=== PATIENT | female | born 1930 | race Caucasian/White ===

== ENCOUNTER 2016-10-10 07:20 | Day surgery (SDC) | payer OTHER ==
[2016-10-10] MEDS ORDERED: MIDAZOLAM 2 MG/2 ML VIAL ONE (07:23)
[2016-10-10] MEDS ORDERED: fentaNYL 100 MCG/2 ML INJ ONE (07:23)
[2016-10-10] MEDS ORDERED: NS 1,000 ML IV SCH (07:45)
[2016-10-10] MEDS ORDERED: CLINDAMYCIN 900 MG/DEXTROSE 50 ML IV ONE (08:00)
[2016-10-10 08:11] LABS: % IMMATURE GRANULYOCYTES 0.2 % (0.0-1.1); ABSOLUTE IMMATURE GRANULOCYTES 0.02 10^3/uL (0.00-0.10); ADD DIFF? NO; ADD MORPH? NO; ADD SCAN? NO; ATYPICAL LYMPHOCYTE FLAG 30 (0-99); FRAGMENT RBC FLAG 0 (0-99); HEMATOCRIT 34.2 % (38.0-47.0); HEMOGLOBIN 10.8 g/dL (12.6-16.3); LEFT SHIFT FLG 0 (0-99); LIPEMIA HEMOLYSIS FLAG 80 (0-99); MEAN CELL HEMOGLOBIN 26.7 pg (27.9-34.1); MEAN CELL HEMOGLOBIN CONCENTR. 31.6 g/dL (32.4-36.7); MEAN CELL VOLUME 84.7 fL (81.5-99.8); MEAN PLATELET VOLUME 9.8 fL (8.7-11.7); PLATELET CLUMPS FLAG 0 (0-99); PLATELET COUNT 355 10^3/uL (150-400); RED BLOOD CELL COUNT 4.04 10^6/uL (4.18-5.33); RED CELL DISTRIBUTION WIDTH 16.3 % (11.5-15.2)
[2016-10-10 08:29] LABS: INR 1.08 (0.83-1.16); PROTIME(PATIENT) 13.9 SEC (12.0-15.0)
[2016-10-10] MEDS ORDERED: BUPIVACAINE 0.5% 30 ML SDV ONE (09:57)
[2016-10-10] MEDS ORDERED: LIDOCAINE 1% 30 ML SDV ONE (09:57)
--- NOTE | 2016-10-10 11:17 | CPEKG ---
Heart Rate: 56 RR Interval: 1071 P-R Interval: 168 QRSD Interval: 90 QT Interval: 408 QTC Interval: 394 P Ringsted: 55 QRS Ringsted: 17 T Wave Ringsted: 20 EKG Severity - NORMAL ECG - EKG Impression: SINUS RHYTHM Electronically Signed By: Lenny Lam 10-Oct-2016 13:18:48
[2016-10-10] MEDS ORDERED: ONDANSETRON 4 MG/2 ML VIAL IVP PRN (11:28)
[2016-10-10] MEDS ORDERED: ONDANSETRON DISINTEGRATING 4 MG TAB PO PRN (11:28)
[2016-10-10] MEDS ORDERED: oxyCODONE IR 5 MG TAB PO PRN (11:30)
[2016-10-10] MEDS ORDERED: METHOCARBAMOL 500 MG TAB PO SCH (12:00)
--- NOTE | 2016-10-10 14:04 | IR ---
Vertebral Augmentation/Kyphoplasty of T9 History: 10 out of 10 pain in thoracic spine and bilateral ribs. She underwent previous kyphoplasty o f T10 on September 10 followed by another insufficiency fracture requiring kyphoplasty of T11 on [facility] er 20. Current symptoms became severe on September 29. MRI on October 01 demonstrated new edema withi n vertebral body of T9. Consent: Risks and benefits of the procedure were discussed in detail, and informed consent was obta ined. Medications: Intravenous conscious sedation and analgesia were given under my supervision. Vital sign s, pulse oximetry, and electrocardiogram were monitored. The patient received 1.5 milligrams of Verse d and 100 micrograms of fentanyl intravenously. She was given prophylactic anabiotic: Clindamycin, 90 0 mg IV. Start time: 0945. End time: 1030. Fluoroscopy time in minutes: 1.6 AP, 1.2 lateral. Estimated exposure in mGy: 131.6. Technique: With the patient prone, the back was prepped and draped in sterile fashion. All elements o f maximal sterile barrier technique were used, including cap, mask, sterile gown, sterile gloves, lar ge sterile sheet, hand hygiene, and 2% chlorhexidine for cutaneous antisepsis. 1% Xylocaine was used for local anesthetic in the soft tissues. 0.5% bupivacaine was used for periosteal anesthetic. After skin bhupinder with a scalpel, a 10-gauge bone needle was inserted into the right pedicle of T9 and advan ruben anteriorly into the vertebral body using biplane fluoroscopic guidance. Straight osteotome and re ticulating osteotome were used for cavity creation, documented by biplane spot images. Sterile methyl methacrylate with barium powder for opacification was prepared in usual fashion. We waited 10 minute s for the cement to firm up. Using the [employer] hydraulic powered dispenser and radiofrequency activatio n of cement, a coaxial large bore needle was used to inject cement under careful biplane fluoroscopic control. 3.5 mL of cement were injected. Final biplane spot images were obtained. Stylet was reinser ed into the 10-gauge bone needle, and needle was removed. The patient tolerated the procedure well a nd was returned to postprocedure recovery area in stable condition. Findings: Opaque cement is well distributed within the vertebral body of T9. Some cement extends into an emissary vein on the right side, of no significance. Opaque cement is well distributed within pre viously treated levels of T10 and T11. As before, the vertebral body of T8 has an old compression fra cture, with moderate anterior wedge compression deformity. Impression: New kyphoplasty of T9, tolerated well. Plans 1. Discharge to home when patient is ready today. 2. Prescriptions given for methocarbamol and oxycodone. 3. Imaging follow up, if necessary. - - - - - - - - - - - - - - - - - - - - - - - - - - - - - - - - - - - - - - - - - - - - (PQRS Measures: Current medications were listed in the medical record, including all known prescript ions, viad-meb-fyzmbbf medications, herbal medications, and nutritional supplements. Tobacco Use: Non e. Prophylactic Antibiotic: Clindamycin 900 mg IV were given within 4 hours prior to incision and t hen discontinued. VTE Prophylaxis: Unnecessary.)
== END 2016-10-10 13:35 | disposition home or self-care (01) ==
LOC: FIMAGING 07:20
PROVIDERS: ATTEND Radiology Diagnostic Radiology
PROC: 0PU43JZ Supplement Thoracic Vertebra with Synthetic Substitute, Percutaneous Approach (ICD-10-PCS; principal; 2016-10-10 10:38)
PROC: 0PS43ZZ Reposition Thoracic Vertebra, Percutaneous Approach (ICD-10-PCS; principal; 2016-10-10 10:38)
DX: M84.48XA Pathological fracture, other site, initial encounter for fracture (principal); J84.10 Pulmonary fibrosis, unspecified; K90.0 Celiac disease
CPT/HCPCS: 86334-90; J2250; J3010

== ENCOUNTER → 2017-01-16 | Outpatient (CLI) | payer OTHER | LOC: BHFA 14:30 | PROVIDERS: ATTEND Internal Medicine Cardiovascular Disease | DX: R94.31 Abnormal electrocardiogram [ECG] [EKG] (principal) ==

== ENCOUNTER → 2017-01-27 | Outpatient (CLI) | payer OTHER | LOC: BHFA 13:15 | PROVIDERS: ATTEND Internal Medicine Interventional Cardiology | DX: I48.91 Unspecified atrial fibrillation (principal) ==

== ENCOUNTER → 2017-01-31 | Outpatient (CLI) | payer OTHER | LOC: BHFA 10:00 | PROVIDERS: ATTEND Internal Medicine Cardiovascular Disease | DX: I48.0 Paroxysmal atrial fibrillation (principal) ==

== ENCOUNTER → 2017-03-04 | Outpatient (CLI) | payer OTHER | LOC: BHFA 08:30 | PROVIDERS: ATTEND Internal Medicine Cardiovascular Disease | DX: I48.91 Unspecified atrial fibrillation (principal); R00.2 Palpitations | CPT/HCPCS: 78452; 93017; 93306; A9500; J2785 ==

== ENCOUNTER → 2017-07-17 | Outpatient (CLI) | payer OTHER | LOC: CIMAGING 12:36 | PROVIDERS: ATTEND Family Medicine | DX: J84.10 Pulmonary fibrosis, unspecified (principal) | CPT/HCPCS: 71020-PO ==

== ENCOUNTER → 2017-08-04 | Outpatient (CLI) | payer OTHER | LOC: CIMAGING 14:07 | PROVIDERS: ATTEND Family Medicine | DX: J84.112 Idiopathic pulmonary fibrosis (principal); S22.050A Wedge compression fracture of T5-T6 vertebra, initial encounter for closed fracture; J47.9 Bronchiectasis, uncomplicated | CPT/HCPCS: 71250-PO ==

== ENCOUNTER → 2017-08-27 | Outpatient (CLI) | payer OTHER | LOC: BRMIMAGING 11:03 | PROVIDERS: ATTEND Family Medicine | DX: Z12.31 Encounter for screening mammogram for malignant neoplasm of breast (principal) | CPT/HCPCS: G0202 ==

== ENCOUNTER → 2017-09-24 | Outpatient (CLI) | payer OTHER | LOC: CIMAGING 14:35 | PROVIDERS: ATTEND Family Medicine | DX: M41.86 Other forms of scoliosis, lumbar region (principal); S32.009A Unspecified fracture of unspecified lumbar vertebra, initial encounter for closed fracture; M54.6 Pain in thoracic spine; M81.0 Age-related osteoporosis without current pathological fracture | CPT/HCPCS: 72072-PO; 72100-PO ==

== ENCOUNTER → 2018-01-20 | Outpatient (CLI) | payer OTHER, MEDICARE | LOC: CIMAGING 15:15 | PROVIDERS: ATTEND Family Medicine | DX: M25.552 Pain in left hip (principal); M81.0 Age-related osteoporosis without current pathological fracture; E03.9 Hypothyroidism, unspecified; K90.0 Celiac disease | CPT/HCPCS: 36415-PO; 73502-PO; 85652-PO ==

== ENCOUNTER 2018-05-08 12:11 | Day surgery (SDC) | payer OTHER, MEDICARE ==
[2018-05-08] MEDS ORDERED: NS 500 ML IV ONE (12:18)
[2018-05-08] MEDS ORDERED: fentaNYL 100 MCG/2 ML INJ IVP ONE (12:18)
[2018-05-08] MEDS ORDERED: MIDAZOLAM 2 MG/2 ML VIAL IVP ONE (12:18)
[2018-05-08] MEDS ORDERED: BENZOCAINE UNIT DOSE SPRAY HURRICAINE MM ONE (12:18)
[2018-05-08] MEDS ORDERED: PROPOFOL 200 MG/20 ML VIAL ONE (13:34)
[2018-05-08] MEDS ORDERED: LIDOCAINE 2% 100 MG/5 ML SYR ONE (13:34)
[2018-05-08] MEDS ORDERED: SUCCINYLCHOLINE CHLORIDE 200 MG/10 ML SYR IVP ONE (13:34)
--- NOTE | 2018-05-08 13:43 | PDHPUP ---
History & Physical Update H&P update statement: This history and physical update is based on an assessment of the patient which was completed after admission or registration (within 24 hours), but prior to the surgery/procedure. H&P update: H&P reviewed & patient examined, no change in patient's condition since H&P completed (Reviewed Dr. Mendez's recent office note. )
--- NOTE | 2018-05-08 14:34 | PDANEPAE ---
ANE History of Present Illness parox a-fib here for CORY and watchman eval ROSE Past Medical History - Cardiovascular History Hx Hypertension: Yes Hx Arrhythmias: No Hx Chest Pain: No Hx Coronary Artery / Peripheral Vascular Disease: No Hx CHF / Valvular Disease: No Hx Palpitations: No - Pulmonary History Hx COPD: No Hx Asthma/Reactive Airway Disease: No Hx Recent Upper Respiratory Infection: No Hx Oxygen in Use at Home: No Hx Sleep Apnea: No - Neurologic History Hx Cerebrovascular Accident: No Hx Seizures: No Hx Dementia: No - Endocrine History Hx Diabetes: No Hypothyroid: Yes - Renal History Hx Renal Disorders: No - Liver History Hx Hepatic Disorders: No - Neurological & Psychiatric Hx Hx Neurological and Psychiatric Disorders: No - Cancer History Hx Cancer: No - Congenital Disorder History Hx Congenital Disorders: No - GI History Hx Gastrointestinal Disorders: Yes Gastrointestinal History Comment: CELIAC - Other Health History Other Health History: HYSTERECTOMY. TONSILS. COLONOSCOPY - Chronic Pain History Chronic Pain: No - Surgical History Prior Surgeries: Kyphoplasty 09/24/16,Kyphoplasty 09/20, colonoscopy, hysterectomy, tonsilectomy ANE Review of Systems Review of Systems: - Exercise capacity Exercise capacity: >=4 METS ANE Patient History - Allergies Allergies/Adverse Reactions: gluten Allergy (Verified 05/08/18 12:37) naproxen Allergy (Verified 05/08/18 12:37) Penicillins Allergy (Verified 09/09/16 12:49) - Home Medications Home medications: home medication list seen and reviewed Home Medications: CALCIUM CARBONATE [CALCIUM] 300 mg PO DAILY 05/20/15 [Last Taken Unknown] Cholecalciferol Vit D3 [Vitamin D3 (OTC)] 1,000 units PO DAILY 05/20/15 [Last Taken Unknown] Cyanocobalamin [Vitamin B12 (OTC)] 1,000 mg PO DAILY 05/20/15 [Last Taken Unknown] Glucosam/Chondr/Collagn/Hyalur [Glucosamine & Chondroitin Cap] 1 tab PO DAILY [Last Taken Unknown] L Lysine 500 mg PO DAILY 05/20/15 [Last Taken Unknown] Lansoprazole [Lansoprazole 30 mg tab] 30 mg PO DAILY 05/20/15 [Last Taken Unknown] Latanoprost 0.005% [Xalatan 0.005% (*)] 20 drops EACHEYE DAILY 05/20/15 [Last Taken Unknown] Levothyroxine [Synthroid 88 mcg (*)] 88 mcg PO DAILY 05/20/15 [Last Taken 06:00] MAGNESIUM [Magnesium Oxide 200 mg] 200 mg PO DAILY 05/20/15 [Last Taken Unknown] Triamterene/Hctz 37.5/25 [Dyazide 37.5/25 (RX)] 37.5 mg PO DAILY 05/20/15 [Last Taken Unknown] Tylenol 325 mg PO PRN PRN 05/20/15 [Last Taken 09/24/16] Adorzolaminde 2 drops EACHEYE DAILY 09/09/16 [Last Taken Unknown] Oxycodone HCl 5 mg PO QID PRN 09/09/16 [Last Taken Unknown] Percocet 5-325 mg Tablet 5 mg PO Q6 PRN 09/09/16 [Last Taken Unknown] Vitamin B Complex 3,000 iunits PO DAILY 09/09/16 [Last Taken 09/23/16] VAGIFEM 09/24/16 [Last Taken Unknown] oxyCODONE HCL [Oxycodone HCl ER] 10 mg PO BID PRN 10/09/16 [Last Taken Unknown] Aspirin 81 mg PO DAILY 05/08/18 [Last Taken 05/08/18 06:00] - NPO status NPO Status: no food or drink >8 hours - Smoking Hx Smoking Status: Never smoked - Alcohol Use Alcohol Use: None - Family Anes Hx Family Anes Hx: none Family Hx Anesthesia Complications: NONE ANE Labs/Vital Signs - Vital Signs Height: 152 cm Weight: 49 kg ANE Physical Exam - Airway Neck exam: decreased ROM Mallampati Score: Class 2 Mouth exam: normal dental/mouth exam - Pulmonary Pulmonary: no respiratory distress - Cardiovascular Cardiovascular: regular rate and rhythym - ASA Status ASA Status: II ANE Anesthesia Plan Anesthesia Plan: GA with mask Total IV Anesthesia: Yes Urgent/Emergent Case: Caity guerrero completed preop but documented later for safe timely pt care
[2018-05-08] MEDS ORDERED: DEXAMETHASONE 4 MG/ML VIAL IVP PRN (14:35)
[2018-05-08] MEDS ORDERED: LR 500 ML IV PRN (14:35)
[2018-05-08] MEDS ORDERED: fentaNYL 100 MCG/2 ML INJ IVP PRN (14:35)
[2018-05-08] MEDS ORDERED: PHENYLEPHRINE HCL 100 MCG/ML SYR IVP PRN (14:35)
[2018-05-08] MEDS ORDERED: NALOXONE HCL 0.4 MG/ML INJ IVP PRN (14:35)
[2018-05-08] MEDS ORDERED: ONDANSETRON 4 MG/2 ML VIAL IVP PRN (14:35)
[2018-05-08] MEDS ORDERED: ALBUTEROL 3 ML DEYVIAL IH PRN (14:35)
--- NOTE | 2018-05-08 14:36 | POSTANESTH ---
Post Anesthetic Evaluation Cardiovascular Status: Normal, Stable Respiratory Status: Normal, Stable Level of Consciousness/Mental Status: Can Participate in Eval Pain Control: Adequate, Prn Tx Ordered Nausea/Vomiting Control: Adequate, Prn Tx Ordered Complications Possibly Related to Anesthesia: None Noted
--- NOTE | 2018-05-08 15:28 | ECHO ---
[email or web address] [place] [id number] Main: [phone] Fax: Transesophageal Echocardiography Name: MACO RIBEIRO MR#: [id number] Study Date: 05/08/2018 Study Time: 01:32 PM Date of : 1930 Age: 87 year(s) Height: ( ) Weight: ( ) BSA: Gender: Female Examination: CORY Indication: Pre Watchman Image Quality: Contrast: Requested by: Jean Claude Mendez Heart Rate: Rhythm: BP: / Procedure Staff Striker Off: Mark Chung RDCS Reading Physician: Martha Viera MD Requesting Provider: Jean Claude Mendez CORY Exam Details Conclusions: Normal global systolic LV function. Baseline CORY Width (mm) 0 degrees: 16.3; 45 degrees: 10.5; 90 degrees: 13.5; 135 degrees: 21.5mm Baseline CORY Length (mm) 0 18, 45 18.2, 90 15.6, 135 21.5. Mild mitral valve regurgitation is present. Mild tricuspid regurgitation is present. The patient has an elevated CHADS2 Vasc score of 3 and is a poor candidate for long-term anticoagulation therapy due to severe anemia which was worse when previously on anticoagulation. She will referred for Watchman evaluation the [facility] Measurements: Chambers Valvular Assessment AV/MV Valvular Assessment TV/PV Normal Normal Normal Name Value Range Name Value Range Name Value Range Additional Measurements: Findings: Left Ventricle: Normal global systolic LV function. No regional wall motion abnormality. Right Ventricle: Normal RV function. Left Atrial Appendage: No thrombus in left appendage. Baseline CORY Width (mm) 0 degrees: 16.3; 45 degrees: 10.5; 90 Patient: MACO RIBEIRO Study Date: 05/08/2018 Page 1 of 2 01:32 PM degrees: 13.5; 135 degrees: 21.5mm Baseline CORY Length (mm) 0 18, 45 18.2, 90 15.6, 135 21.5. Mitral Valve: The mitral valve is normal in appearance. Mild mitral valve regurgitation is present. Aortic Valve: The aortic valve is normal in appearance. Tricuspid Valve: Mild tricuspid regurgitation is present. l1n (No Signature Object) Patient: MACO RIBEIRO Study Date: 05/08/2018 Page 2 of 2 01:32 PM [id number]
== END 2018-05-08 15:28 | disposition home or self-care (01) ==
LOC: FCATH 12:11
PROVIDERS: ATTEND Internal Medicine Cardiovascular Disease
DX: I48.0 Paroxysmal atrial fibrillation (principal); I10 Essential (primary) hypertension
CPT/HCPCS: J0330; J2001; J2704

== ENCOUNTER 2018-05-25 | Inpatient (IN) | payer OTHER, MEDICARE | END 2018-05-26 14:13 | disposition home or self-care (01) | DRG 310 | PROVIDERS: ADMIT Internal Medicine Cardiovascular Disease | PROC: 02JA3ZZ Inspection of Heart, Percutaneous Approach (ICD-10-PCS; principal; 2018-05-25) | DX: I48.91 Unspecified atrial fibrillation (principal); D64.9 Anemia, unspecified | CPT/HCPCS: C1769; C1893; J1100; J1644; J2001; J2405; J2704; J2720; Q9967 ==

== ENCOUNTER → 2018-09-18 | Outpatient (CLI) | payer OTHER, MEDICARE | LOC: BRMIMAGING 14:54 | PROVIDERS: ATTEND Family Medicine | DX: Z12.31 Encounter for screening mammogram for malignant neoplasm of breast (principal) ==